=== PATIENT | female | born 1985 | race Caucasian/White ===

== ENCOUNTER → 2020-09-05 | Outpatient (CLI) | payer OTHER ==
[2020-09-05 11:01] LABS: ABSOLUTE EOSINOPHILS 0.1 thou/uL (0.0-0.7); ABSOLUTE LYMPHOCYTES 1.3 thou/uL (0.8-5.3); ABSOLUTE MONOCYTES 0.3 thou/uL (0.0-1.2); ABSOLUTE NEUTROPHILS 3.5 thou/uL (1.6-8.1); BASOPHILS 0.9 %; EOSINOPHILS 1.1 %; HEMATOCRIT 42.7 % (37.0-47.0); HEMOGLOBIN 13.9 gm/dL (12.0-15.0); LYMPHOCYTES 25.7 %; MCH 27.9 pg (26.0-34.0); MCHC 32.7 g/dL (28.0-37.0); MCV 85.4 fL (80.0-100.0); MONOCYTES 4.8 %; MPV 7.4 fl. (7.2-11.1); NUCLEATED RBCS 0 /100WBC; PLATELET COUNT* 366 thou/uL (150-400); POLYS 67.5 %; RDW-CV 13.1 % (10.5-14.5); WBC 5.2 thou/uL (4.0-11.0)
[2020-09-05 11:13] LABS: ALBUMIN 4.3 g/dL (3.4-5.0); ALKALINE PHOSPHATASE 52 U/L (46-116); ANION GAP 12 mmol/L (7-16); BUN 9 mg/dL (7-18); CALCIUM 9.1 mg/dL (8.5-10.1); CHLORIDE 101 mmol/L (98-107); CHOLESTEROL 190 mg/dL (<200); CO2 28 mmol/L (21-32); CREATININE 0.7 mg/dL (0.6-1.3); GLUCOSE 99 mg/dL (70-99); HDL CHOLESTEROL 72 mg/dL (>40); LDL CHOLESTEROL 112 mg/dL (<100); SGOT 12 U/L (15-37); SGPT 18 U/L (30-65); SODIUM 141 mmol/L (136-145); TC:HDL 2.6 Ratio (Not establshd); TOTAL BILIRUBIN 0.4 mg/dL (<0.1-1.0); TOTAL PROTEIN 7.5 g/dL (6.4-8.2); TRIGLYCERIDE 30 mg/dL (<150); VLDL 6 mg/dL (<40)
[2020-09-05 11:57] LABS: SERUM ASSESSMENT Clear
== END ==
LOC: M.LAB 10:42
PROVIDERS: ATTEND Family Medicine
DX: F43.10 Post-traumatic stress disorder, unspecified (principal); F60.3 Borderline personality disorder; F10.11 Alcohol abuse, in remission; F41.9 Anxiety disorder, unspecified; F33.41 Major depressive disorder, recurrent, in partial remission; Z76.89 Persons encountering health services in other specified circumstances

== ENCOUNTER → 2020-12-16 | Outpatient (CLI) | payer OTHER ==
[2020-12-16 12:36] LABS: ABSOLUTE BASOPHILS 0.1 thou/uL (0.0-0.2); ABSOLUTE EOSINOPHILS 0.2 thou/uL (0.0-0.7); ABSOLUTE LYMPHOCYTES 1.8 thou/uL (0.8-5.3); ABSOLUTE MONOCYTES 0.3 thou/uL (0.0-1.2); ABSOLUTE NEUTROPHILS 3.2 thou/uL (1.6-8.1); BASOPHILS 1.3 %; HEMATOCRIT 43.6 % (37.0-47.0); HEMOGLOBIN 14.3 gm/dL (12.0-15.0); LYMPHOCYTES 31.7 %; MCH 28.3 pg (26.0-34.0); MCHC 32.8 g/dL (28.0-37.0); MCV 86.3 fL (80.0-100.0); MONOCYTES 5.7 %; MPV 7.3 fl. (7.2-11.1); NUCLEATED RBCS 0 /100WBC; PLATELET COUNT* 395 thou/uL (150-400); POLYS 57.3 %; RBC 5.05 mil/uL (4.20-5.00); WBC 5.6 thou/uL (4.0-11.0)
[2020-12-16 12:55] LABS: ALBUMIN 4.3 g/dL (3.4-5.0); CALCIUM 9.8 mg/dL (8.5-10.1); CREATININE 0.8 mg/dL (0.6-1.3); POTASSIUM 3.8 mmol/L (3.5-5.1); TOTAL BILIRUBIN 0.4 mg/dL (<0.1-1.0); TOTAL PROTEIN 8.1 g/dL (6.4-8.2)
== END ==
LOC: M.LAB 12:06
PROVIDERS: ATTEND Family Medicine
DX: E06.3 Autoimmune thyroiditis (principal); F60.3 Borderline personality disorder; F43.10 Post-traumatic stress disorder, unspecified; R79.89 Other specified abnormal findings of blood chemistry; D50.9 Iron deficiency anemia, unspecified